=== PATIENT | female | born 1955 | race African-American/Black ===

== ENCOUNTER 2018-08-29 12:55 | Emergency (ER) | payer MEDICAID ==
[~2018-08-29] VITALS: Ht 162.6 cm; Wt 90.0 kg
[2018-08-29 17:11] VITALS: BP 114/68
== END 2018-08-29 17:40 | disposition home or self-care (01) ==
LOC: ER 12:55
DX: J06.9 Acute upper respiratory infection, unspecified (principal); J30.9 Allergic rhinitis, unspecified; M19.90 Unspecified osteoarthritis, unspecified site; Z88.5 Allergy status to narcotic agent; Z88.6 Allergy status to analgesic agent; Z88.0 Allergy status to penicillin; Z98.890 Other specified postprocedural states
CPT/HCPCS: 71046; 99283

== ENCOUNTER 2019-03-17 17:41 | Emergency (ER) | payer MEDICAID ==
[~2019-03-17] VITALS: Ht 162.6 cm; Wt 84.0 kg
[2019-03-17 17:59] VITALS: BP 131/71
== END 2019-03-17 21:00 | disposition left against medical advice (07) ==
LOC: ER 17:41
DX: Z53.21 Procedure and treatment not carried out due to patient leaving prior to being seen by health care provider (principal)

== ENCOUNTER 2019-04-29 16:07 | Emergency (ER) | payer MEDICAID ==
[~2019-04-29] VITALS: Ht 162.6 cm; Wt 87.0 kg
[2019-04-29 20:35] VITALS: BP 111/58
== END 2019-04-29 20:38 | disposition home or self-care (01) ==
LOC: ER 16:07
DX: R05 Cough (principal); R10.13 Epigastric pain; Z88.1 Allergy status to other antibiotic agents; Z88.5 Allergy status to narcotic agent; Z88.6 Allergy status to analgesic agent; Z98.890 Other specified postprocedural states
CPT/HCPCS: 36415; 71045; 84484; 93005; 99284